=== PATIENT | female | born 1995 | race African-American/Black ===

== ENCOUNTER 2020-08-15 19:15 | Inpatient (IN) | payer OTHER ==
[2020-08-15 20:52] VITALS: BMI 46.2
[2020-08-15] MEDS ORDERED: NS / Oxytocin 40 units/1000ml 1,000 ML IV PRN ×3 (21:26→22:20)
[2020-08-15] MEDS ORDERED: Promethazine HCl 25 MG/ML VIAL IM PRN ×2 (21:26→21:28)
[2020-08-15] MEDS ORDERED: Carboprost 250 MCG/ML AMP IM PRN (21:26)
[2020-08-15] MEDS ORDERED: Ibuprofen 800 MG TAB PO PRN (21:26)
[2020-08-15] MEDS ORDERED: Misoprostol 200 MCG TAB PR PRN (21:26)
[2020-08-15] MEDS ORDERED: Lidocaine 1% (PF) 30 ML VIAL SC PRN ×3 (21:26→22:20)
[2020-08-15] MEDS ORDERED: hydrALAZINE 20 MG/ML VIAL SLOW IVP PRN ×2 (21:26→21:28)
[2020-08-15] MEDS ORDERED: Ondansetron PF 4 MG/2 ML Vial IVP PRN ×2 (21:26→21:28)
[2020-08-15] MEDS ORDERED: Methylergonovine 0.2 MG/ML VIAL IM PRN (21:26)
[2020-08-15] MEDS ORDERED: Misoprostol 100 MCG TAB VAG SCH ×2 (21:30→22:00)
[2020-08-15] MEDS ORDERED: Lactated Ringer's 1,000 ML IV SCH (21:30)
[2020-08-15] MEDS ORDERED: NS w/ Oxytocin 30 units 500 ML IV PRN (21:43)
[2020-08-15 22:09] LABS: Hemoglobin 10.2 g/dL (12.0-15.5); Mean Corpuscular HGB CONC 31.8 g/dL (32.0-36.0); Mean Corpuscular Hemoglobin 23.9 pg (27.0-33.0); Mean Corpuscular Volume 75.4 fl (81.6-98.3); Mean Platelet Volume 9.5 fl (7.4-10.4); Platelet Count 336 10x3/uL (150-450); RBC Distribution Width 13.9 % (11.5-14.5); Red Blood Cell (RBC) Count 4.26 10x6/uL (3.90-5.03)
[2020-08-15] MEDS ORDERED: Penicillin G Potassium 5 MILL.UNITS in Sodium Chloride 0.9% 100 ML IVPB SCH (22:30)
[2020-08-15 22:38] LABS: Hep B Surf Ag Non-Reactive S/CO (NonReactive); Syphilis Antibody Nonreactive (Nonreactive); Syphilis Antibody Index 0.03 S/CO (<1.00 Non-Reactive)
[2020-08-15] MEDS: Lactated Ringer's 1,000 ML IV SCH (23:23)
[2020-08-15 23:34] LABS: HBSAg Index 0.17 S/CO (0-0.99)
[2020-08-15] MEDS ORDERED: Fentanyl 4 mcg/Bup 0.1% Cadd 100 ML ONE (23:42)
[2020-08-16] MEDS ORDERED: Lactated Ringer's 500 ML IV PRN (00:22)
[2020-08-16] MEDS ORDERED: Promethazine HCl 25 MG/ML VIAL IM PRN (00:22)
[2020-08-16] MEDS ORDERED: Naloxone HCl 0.4 mg/ml Vial IVP PRN ×2 (00:22)
[2020-08-16] MEDS ORDERED: diphenhydrAMINE 50 MG/ML VIAL IVP PRN (00:22)
[2020-08-16] MEDS ORDERED: Ondansetron PF 4 MG/2 ML Vial IVP PRN (00:22)
[2020-08-16] MEDS ORDERED: ePHEDrine 50 MG/ML VIAL SLOW IVP PRN (00:22)
[2020-08-16] MEDS ORDERED: Communication Order-Pharmacy FS SCH (00:30)
[2020-08-16] MEDS ORDERED: Labetalol 100 MG TAB PO SCH (00:45)
[2020-08-16 00:47] LABS: Glucose 153 mg/dL (70-105)
[2020-08-16] MEDS: Penicillin G 2.5 MILL.units 2.5 MILL.UNITS in Premix Bag 1 BAG IVPB SCH ×4 (03:44→18:30)
[2020-08-16] MEDS: Fentanyl 4 mcg/Bupivacaine 0.1% Cassette 100 ML EPIDURAL SCH ×2 (08:31→15:24)
[2020-08-16] MEDS: Lactated Ringer's 1,000 ML IV SCH (10:17)
[2020-08-16] MEDS ORDERED: Calcium Gluc 4.6 MEQ/10 ML (100 MG/ML) SLOW IVP PRN (12:13)
[2020-08-16] MEDS ORDERED: Magnesium Sulfate 20 GM/WATER 500 ML BAG IVPB SCH (12:15)
[2020-08-16] MEDS ORDERED: Magnesium Sulfate 20 gm/500 ml 20 GM/500 ML BAG ONE (12:16)
[2020-08-16] MEDS: Magnesium Sulfate 20 gm/500 ml 20 GM/500 ML BAG IVPB SCH ×2 (12:25→21:30)
[2020-08-16] MEDS ORDERED: Magnesium Sulfate 20 gm/500 ml 4 GM/100 ML BAG IVPB ONE (12:30)
[2020-08-16] MEDS ORDERED: Fentanyl 100 MCG/2 ML VIAL ONE (13:52)
[2020-08-16] MEDS: hydrALAZINE 20 MG/ML VIAL SLOW IVP SCH ×2 (14:23→17:39)
[2020-08-16] MEDS ORDERED: hydrALAZINE 20 MG/ML VIAL SLOW IVP SCH (17:30)
[2020-08-16] MEDS ORDERED: Adacel (T-DAP) 0.5 ML SYRINGE IM ONE (19:26)
[2020-08-16] MEDS ORDERED: hydrALAZINE 20 MG/ML VIAL SLOW IVP PRN (19:26)
[2020-08-16] MEDS ORDERED: Bisacodyl 10 MG SUPP PR PRN (19:26)
[2020-08-16] MEDS ORDERED: Lanolin Ointment 7 GM TUBE TOP PRN (19:26)
[2020-08-16] MEDS ORDERED: Milk Of Magnesia 30 ML UDCUP PO PRN (19:26)
[2020-08-16] MEDS ORDERED: Preparation H Ointment 28 GM TUBE PR PRN (19:26)
[2020-08-16] MEDS ORDERED: NS / Oxytocin 40 units/1000ml 1,000 ML IV SCH (19:30)
[2020-08-16 19:33] LABS: RapidComm Collect By cbn
[2020-08-16 19:34] LABS: Notified Whom: L&D; RapidComm Collect By cbn; pH (Cord, venous) 7.334 (7.250-7.350)
[2020-08-16] MEDS ORDERED: NS w/ Oxytocin 30 units 500 ML ONE (19:55)
[2020-08-16] MEDS: Labetalol 100 MG TAB PO SCH (21:05)
[2020-08-17] MEDS ORDERED: HumaLOG 300 UNITS/3 ML VIAL SC PRN ×2 (01:56)
[2020-08-17] MEDS ORDERED: Dextrose 50% Abboject 50 ML SYRINGE SLOW IVP PRN (01:56)
[2020-08-17] MEDS ORDERED: Dextrose 5% in Water 1,000 ML IV PRN (01:56)
[2020-08-17 08:20] LABS: Hemoglobin 9.8 g/dL (12.0-15.5); Mean Corpuscular HGB CONC 31.2 g/dL (32.0-36.0); Mean Corpuscular Hemoglobin 23.6 pg (27.0-33.0); Mean Corpuscular Volume 75.5 fl (81.6-98.3); Mean Platelet Volume 9.5 fl (7.4-10.4); Platelet Count 343 10x3/uL (150-450); RBC Distribution Width 14.5 % (11.5-14.5); Red Blood Cell (RBC) Count 4.16 10x6/uL (3.90-5.03); White Blood Cell (WBC) Count 13.6 10x3/uL (3.5-10.5)
[2020-08-17] MEDS: Magnesium Sulfate 20 gm/500 ml 20 GM/500 ML BAG IVPB SCH (08:20)
[2020-08-17] MEDS: Labetalol 100 MG TAB PO SCH ×2 (09:47→21:08)
[2020-08-17] MEDS: Docusate Calcium (SURFAK) 240 MG CAP PO SCH ×2 (09:53→21:09)
[2020-08-17] MEDS: Ferrous Sulfate 325 MG TAB PO SCH (09:53)
[2020-08-17] MEDS: Prenatal Vitamin 1 TAB PO SCH (09:53)
[2020-08-17] MEDS: Ibuprofen 800 MG TAB PO SCH ×2 (13:24→21:10)
[2020-08-17] MEDS: Lactated Ringer's 1,000 ML IV SCH (15:31)
[2020-08-17] MEDS: Acetaminophen 325 MG TAB PO PRN ×2 (15:59→21:09)
[2020-08-18] MEDS: Ibuprofen 800 MG TAB PO SCH ×3 (06:31→21:24)
[2020-08-18] MEDS: Labetalol 100 MG TAB PO SCH ×2 (08:50→21:26)
[2020-08-18] MEDS: Prenatal Vitamin 1 TAB PO SCH (08:50)
[2020-08-18] MEDS: Ferrous Sulfate 325 MG TAB PO SCH ×2 (08:50→18:30)
[2020-08-18] MEDS: Docusate Calcium (SURFAK) 240 MG CAP PO SCH ×2 (08:51→21:26)
[2020-08-18] MEDS: Lactated Ringer's 1,000 ML IV SCH (21:27)
[2020-08-19] MEDS: Ibuprofen 800 MG TAB PO SCH ×2 (06:36→12:06)
[2020-08-19] MEDS: Lactated Ringer's 1,000 ML IV SCH ×2 (07:00→12:06)
[2020-08-19] MEDS ORDERED: Labetalol 100 MG TAB PO SCH (09:00)
[2020-08-19] MEDS: Ferrous Sulfate 325 MG TAB PO SCH (09:24)
[2020-08-19] MEDS: Docusate Calcium (SURFAK) 240 MG CAP PO SCH (09:25)
[2020-08-19] MEDS: Prenatal Vitamin 1 TAB PO SCH (09:25)
[2020-08-19 10:55] VITALS: TEMP 98.1
[2020-08-19 11:22] VITALS: BP 144/67
== END 2020-08-19 12:35 | disposition home or self-care (01) | DRG 807 ==
LOC: CSHLD 19:56 → CSHPP 08-17 20:35
PROVIDERS: ADMIT Family Medicine; ATTEND Family Medicine
PROC: 10E0XZZ Delivery of Products of Conception, External Approach (ICD-10-PCS; principal; 2020-08-16)
PROC: 10907ZC Drainage of Amniotic Fluid, Therapeutic from Products of Conception, Via Natural or Artificial Opening (ICD-10-PCS; 2020-08-16)
PROC: 3E033VJ Introduction of Other Hormone into Peripheral Vein, Percutaneous Approach (ICD-10-PCS; 2020-08-16)
PROC: 3E0P7VZ Introduction of Hormone into Female Reproductive, Via Natural or Artificial Opening (ICD-10-PCS; 2020-08-16)
PROC: 10H07YZ Insertion of Other Device into Products of Conception, Via Natural or Artificial Opening (ICD-10-PCS; 2020-08-16)
DX: O11.4 Pre-existing hypertension with pre-eclampsia, complicating childbirth (principal); Z37.0 Single live birth; Z20.822 Contact with and (suspected) exposure to COVID-19; O66.0 Obstructed labor due to shoulder dystocia; O99.824 Streptococcus B carrier state complicating childbirth; O24.425 Gestational diabetes mellitus in childbirth, controlled by oral hypoglycemic drugs; O69.81X0 Labor and delivery complicated by cord around neck, without compression, not applicable or unspecified; Z3A.37 37 weeks gestation of pregnancy; Z88.2 Allergy status to sulfonamides; Z88.1 Allergy status to other antibiotic agents; Z79.82 Long term (current) use of aspirin; Z79.899 Other long term (current) drug therapy; O70.0 First degree perineal laceration during delivery
CPT/HCPCS: 36415; 36416; 51702; 82805; 82947; 85027; 86780; 86850; 86900; 86901; 87340; 88307; J0360; J1200; J1815; J2405; J2540; J2590; J3010; J3475; J3490

== ENCOUNTER 2020-08-20 23:11 | Inpatient (IN) | payer OTHER ==
[2020-08-20] MEDS ORDERED: Ondansetron ODT 4 MG TAB PO PRN (23:16)
[2020-08-20] MEDS ORDERED: Calcium Gluconate 4.6 MEQ in Sodium Chloride 0.9% 100 ML IVPB PRN (23:16)
[2020-08-20] MEDS ORDERED: Magnesium Sulfate 20 gm/500 ml 20 GM/500 ML BAG IVPB SCH (23:30)
[2020-08-20] MEDS ORDERED: Enoxaparin Sodium 40 MG/0.4 ML SYRINGE SC SCH (23:45)
[2020-08-21] MEDS ORDERED: niCARdipine 25 MG in Sodium Chloride 0.9% 250 ML 240 ML IVPB SCH (00:15)
[2020-08-21] MEDS ORDERED: Furosemide 20 MG/2 ML VIAL SLOW IVP SCH ×2 (00:15→06:45)
[2020-08-21 00:37] VITALS: BMI 44.3
[2020-08-21] MEDS: Acetaminophen 325 MG TAB PO PRN ×3 (01:56→20:35)
[2020-08-21 02:18] LABS: SARS-CoV-2 NAA Rapid Test Not Detected (NotDetected)
[2020-08-21 04:19] LABS: #Eosinphils 0.3 10x3/uL (0.0-0.5); #Monocytes 0.7 10x3/uL (0.0-1.1); #Neutrophils 6.2 10x3/uL (1.5-8.4); %Basophils 0.4 % (0.0-2.0); %Eosinophils 3.1 % (0.0-6.0); %Lymphocytes 24.4 % (18.0-47.0); %Neutrophils 64.6 % (40.0-75.0); Hemoglobin 9.4 g/dL (12.0-15.5); Mean Corpuscular HGB CONC 30.7 g/dL (32.0-36.0); Mean Corpuscular Hemoglobin 23.5 pg (27.0-33.0); Mean Corpuscular Volume 76.5 fl (81.6-98.3); Mean Platelet Volume 8.9 fl (7.4-10.4); Platelet Count 435 10x3/uL (150-450); White Blood Cell (WBC) Count 9.5 10x3/uL (3.5-10.5)
[2020-08-21 04:28] LABS: ALT (SGPT) 55 U/L (8-55); AST (SGOT) 45 U/L (5-34); Albumin 3.4 g/dL (3.5-5.0); Alkaline Phosphatase 163 U/L (40-110); Anion Gap 15 mmol/L (10-20); BUN (Urea Nitrogen) 4 mg/dL (7.0-18.7); Bilirubin, Total 0.4 mg/dL (0.2-1.2); Calc. Creatinine Clearance 269 mL/min (70-130); Carbon Dioxide 25 mmol/L (22-29); Chloride 105 mmol/L (98-107); Globulin 2.9 g/dL (2.4-3.5); Glucose 91 mg/dL (70-105); Protein, Total 6.3 g/dL (6.0-8.3); Sodium 142 mmol/L (136-145)
[2020-08-21] MEDS ORDERED: Potassium Chloride 20 MEQ TAB PO SCH (06:45)
[2020-08-21] MEDS ORDERED: Carvedilol 3.125 MG TAB PO SCH ×3 (08:00→17:00)
[2020-08-21] MEDS ORDERED: Prenatal Vitamin 1 TAB PO SCH ×2 (09:00→11:03)
[2020-08-21] MEDS ORDERED: Chlorthalidone 25 MG TAB PO SCH (09:00)
[2020-08-21] MEDS ORDERED: Enoxaparin Sodium 40 MG/0.4 ML SYRINGE SC SCH (09:00)
[2020-08-21] MEDS ORDERED: hydrALAZINE 20 MG/ML VIAL ONE (10:25)
[2020-08-21] MEDS ORDERED: hydrALAZINE 20 MG/ML VIAL SLOW IVP PRN ×2 (10:55→15:07)
[2020-08-21] MEDS ORDERED: Lactated Ringer's 1,000 ML IV SCH (11:00)
[2020-08-21] MEDS ORDERED: Polyethylene Glycol 3350 17 GM Packet PO PRN (11:03)
[2020-08-21] MEDS ORDERED: Magnesium Sulfate 20 gm/500 ml 20 GM/500 ML BAG IVPB SCH (11:03)
[2020-08-21] MEDS ORDERED: Calcium Carbonate 500 MG ChewTAB PO PRN (11:03)
[2020-08-21] MEDS ORDERED: Calcium Gluconate 4.6 MEQ in Sodium Chloride 0.9% 100 ML IVPB PRN (11:03)
[2020-08-21] MEDS ORDERED: Docusate 100 MG CAP PO PRN (11:03)
[2020-08-21] MEDS ORDERED: Ondansetron ODT 4 MG TAB PO PRN (11:03)
[2020-08-21] MEDS ORDERED: Ferrous Sulfate 325 MG TAB PO SCH (12:30)
[2020-08-21] MEDS ORDERED: Furosemide 20 MG TAB PO SCH ×3 (12:30→14:00)
[2020-08-21] MEDS ORDERED: Amlodipine 10 MG TAB PO SCH (12:45)
[2020-08-21] MEDS ORDERED: Labetalol HCl 100 MG/20 ML VIAL SLOW IVP SCH (13:00)
[2020-08-21] MEDS ORDERED: Ibuprofen 200 MG TAB PO PRN (13:31)
[2020-08-21] MEDS ORDERED: hydrALAZINE 20 MG/ML VIAL SLOW IVP SCH ×2 (14:00→15:15)
[2020-08-21] MEDS ORDERED: HYDROcodone/Acetaminophen 5/325 mg Tablet PO PRN (15:35)
[2020-08-21] MEDS: Carvedilol 6.25 MG TAB PO SCH ×2 (20:43→22:03)
[2020-08-21] MEDS ORDERED: FLU VACC QS2020-21(6MOS UP)/PF 60 MCG/0.5 ML SYRINGE IM ONE (21:00)
[2020-08-21] MEDS ORDERED: Prevnar 13-Val Conj/PF 0.5 ML SYRINGE IM ONE (21:00)
[2020-08-21] MEDS: Enoxaparin Sodium 40 MG/0.4 ML SYRINGE SC SCH (22:00)
[2020-08-22 06:44] LABS: ALT (SGPT) 49 U/L (8-55); AST (SGOT) 28 U/L (5-34); Albumin 3.3 g/dL (3.5-5.0); Alkaline Phosphatase 156 U/L (40-110); Anion Gap 12 mmol/L (10-20); BUN (Urea Nitrogen) 7 mg/dL (7.0-18.7); Bilirubin, Total 0.4 mg/dL (0.2-1.2); Calc. Creatinine Clearance 225 mL/min (70-130); Carbon Dioxide 26 mmol/L (22-29); Chloride 105 mmol/L (98-107); Globulin 2.8 g/dL (2.4-3.5); Glucose 107 mg/dL (70-105); Potassium 3.3 mmol/L (3.5-5.1); Protein, Total 6.1 g/dL (6.0-8.3); Sodium 140 mmol/L (136-145)
[2020-08-22] MEDS ORDERED: Potassium Chloride 20 MEQ TAB PO SCH (09:00)
[2020-08-22] MEDS: Prenatal Vitamin 1 TAB PO SCH (09:08)
[2020-08-22] MEDS: Carvedilol 6.25 MG TAB PO SCH ×2 (09:09→17:49)
[2020-08-22] MEDS: Ferrous Sulfate 325 MG TAB PO SCH (09:09)
[2020-08-22] MEDS: Chlorthalidone 25 MG TAB PO SCH (09:09)
[2020-08-22] MEDS: Amlodipine 10 MG TAB PO SCH (09:09)
[2020-08-22] MEDS: Acetaminophen 325 MG TAB PO PRN (20:13)
[2020-08-22] MEDS: Enoxaparin Sodium 40 MG/0.4 ML SYRINGE SC SCH (21:09)
[2020-08-22 23:31] LABS: SARS-CoV-2 NAA Rapid Test Not Detected (NotDetected)
[2020-08-23 07:54] VITALS: BP 132/64; TEMP 99.3
[2020-08-23] MEDS: Ferrous Sulfate 325 MG TAB PO SCH (08:29)
[2020-08-23] MEDS: Amlodipine 10 MG TAB PO SCH (08:29)
[2020-08-23] MEDS: Chlorthalidone 25 MG TAB PO SCH (08:29)
[2020-08-23] MEDS: Prenatal Vitamin 1 TAB PO SCH (08:29)
[2020-08-23] MEDS: Carvedilol 6.25 MG TAB PO SCH (08:30)
== END 2020-08-23 11:00 | disposition home or self-care (01) | DRG 776 ==
LOC: CSHICU 23:11 → CSHLD 08-21 09:59 → CSHPP 08-21 22:24
PROVIDERS: ADMIT Obstetrics & Gynecology; ATTEND Student in an Organized Health Care Education/Training Program
DX: O11.5 Pre-existing hypertension with pre-eclampsia, complicating the puerperium (principal); I16.1 Hypertensive emergency; O10.93 Unspecified pre-existing hypertension complicating the puerperium; O24.439 Gestational diabetes mellitus in the puerperium, unspecified control; O90.81 Anemia of the puerperium; D50.9 Iron deficiency anemia, unspecified; O99.43 Diseases of the circulatory system complicating the puerperium; Z94.9 Transplanted organ and tissue status, unspecified; Z79.899 Other long term (current) drug therapy; Z83.49 Family history of other endocrine, nutritional and metabolic diseases; Z80.3 Family history of malignant neoplasm of breast; Z80.6 Family history of leukemia; Z83.3 Family history of diabetes mellitus; O91.22 Nonpurulent mastitis associated with the puerperium
CPT/HCPCS: 80053; 83735; 83880; 84484; 85025; 93005; 93010; 93306; J0360; J1650; J1940; J3475; U0002

== ENCOUNTER 2022-09-26 01:10 | Emergency (ER) | payer OTHER ==
[2022-09-26 02:07] LABS: #Basophils 0.1 10x3/uL (0.0-0.2); #Eosinphils 0.3 10x3/uL (0.0-0.5); #Monocytes 0.4 10x3/uL (0.0-1.1); #Neutrophils 4.5 10x3/uL (1.5-8.4); %Basophils 0.6 % (0.0-2.0); %Eosinophils 3.1 % (0.0-6.0); %Lymphocytes 40.2 % (18.0-47.0); %Monocytes 4.3 % (0.0-10.0); %Neutrophils 51.6 % (40.0-75.0); Hemoglobin 13.5 g/dL (12.0-15.5); Mean Corpuscular HGB CONC 32.6 g/dL (32.0-36.0); Mean Corpuscular Volume 79.6 fl (81.6-98.3); Mean Platelet Volume 8.8 fl (7.4-10.4); Platelet Count 419 10x3/uL (150-450); RBC Distribution Width 13.5 % (11.5-14.5); White Blood Cell (WBC) Count 8.7 10x3/uL (3.5-10.5)
[2022-09-26 02:17] LABS: BHCG - Serum POSITIVE (NEGATIVE); Pregs Control Background? CLEAR/WHITE (CLR/WHITE); Pregs Control Bar Appear? YES (CONTROL BAR)
[2022-09-26 02:22] LABS: ALT (SGPT) 138 U/L (8-55); AST (SGOT) 49 U/L (5-34); Albumin 4.4 g/dL (3.5-5.0); Alkaline Phosphatase 119 U/L (40-110); Anion Gap 14 mmol/L (10-20); BUN (Urea Nitrogen) 10 mg/dL (7.0-18.7); Bilirubin, Total 0.4 mg/dL (0.2-1.2); Calc. Creatinine Clearance 0 mL/min (70-130); Calcium 9.1 mg/dL (7.8-10.44); Carbon Dioxide 22 mmol/L (22-29); Chloride 104 mmol/L (98-107); Estimated GFR 107; Globulin 3.6 g/dL (2.4-3.5); Glucose 105 mg/dL (70-105); Potassium 4.1 mmol/L (3.5-5.1); Sodium 136 mmol/L (136-145)
== END 2022-09-26 02:40 | disposition home or self-care (01) ==
LOC: CSHERS 01:10
DX: O26.891 Other specified pregnancy related conditions, first trimester (principal); F17.290 Nicotine dependence, other tobacco product, uncomplicated; Z3A.00 Weeks of gestation of pregnancy not specified
CPT/HCPCS: 80053; 84703; 85025; 93005; 96360

== ENCOUNTER 2022-10-11 22:56 | Emergency (ER) | payer BC, OTHER | END 2022-10-11 23:30 | disposition home or self-care (01) | LOC: CSHERS 22:56 | DX: O21.9 Vomiting of pregnancy, unspecified (principal); Z3A.01 Less than 8 weeks gestation of pregnancy | CPT/HCPCS: 99283 ==

== ENCOUNTER 2022-10-13 15:00 | Emergency (ER) | payer BC, OTHER ==
[2022-10-13 15:46] LABS: Bilirubin Neg (Negative); Blood, Urine 25 (Negative); Clarity Clear (Clear); Glucose, Urine (Dipstick) Normal (Negative); Ketone, Urine Negative (Negative); Leukocyte Negative (Negative); Nitrite Negative (Negative); Protein, Urine (Dipstick) Negative (Neg-Trace); Urobilinogen Normal mg/dL (Less than 2)
[2022-10-13 16:07] LABS: Bacteria/HPF Rare-Few HPF (None Seen); RBC/HPF 0-3 HPF (0-3); Squamous Epithelial 0-3 HPF (0-3); WBC/HPF 0-3 HPF (0-3)
[2022-10-13 16:20] LABS: #Eosinphils 0.2 10x3/uL (0.0-0.5); #Monocytes 0.5 10x3/uL (0.0-1.1); #Neutrophils 4.3 10x3/uL (1.5-8.4); %Basophils 0.4 % (0.0-2.0); %Eosinophils 2.7 % (0.0-6.0); %Lymphocytes 31.3 % (18.0-47.0); %Monocytes 6.6 % (0.0-10.0); %Neutrophils 58.6 % (40.0-75.0); Hemoglobin 12.3 g/dL (12.0-15.5); Mean Corpuscular HGB CONC 32.5 g/dL (32.0-36.0); Mean Corpuscular Hemoglobin 26.1 pg (27.0-33.0); Mean Corpuscular Volume 80.5 fl (81.6-98.3); Platelet Count 400 10x3/uL (150-450); RBC Distribution Width 13.9 % (11.5-14.5); Red Blood Cell (RBC) Count 4.71 10x6/uL (3.90-5.03); White Blood Cell (WBC) Count 7.4 10x3/uL (3.5-10.5)
[2022-10-13 16:32] LABS: ALT (SGPT) 34 U/L (8-55); AST (SGOT) 20 U/L (5-34); Albumin 4.1 g/dL (3.5-5.0); Alkaline Phosphatase 102 U/L (40-110); Anion Gap 11 mmol/L (10-20); BUN (Urea Nitrogen) 12 mg/dL (7.0-18.7); Bilirubin, Total 0.3 mg/dL (0.2-1.2); Calc. Creatinine Clearance 0 mL/min (70-130); Calcium 9.2 mg/dL (7.8-10.44); Carbon Dioxide 24 mmol/L (22-29); Chloride 104 mmol/L (98-107); Estimated GFR 98; Globulin 3.2 g/dL (2.4-3.5); Glucose 134 mg/dL (70-105); Potassium 4.2 mmol/L (3.5-5.1); Protein, Total 7.3 g/dL (6.0-8.3); Sodium 135 mmol/L (136-145)
== END 2022-10-13 17:13 | disposition home or self-care (01) ==
LOC: CSHERS 15:00
DX: O20.0 Threatened abortion (principal); Z3A.01 Less than 8 weeks gestation of pregnancy
CPT/HCPCS: 36415; 76856; 80053; 81003; 81015; 84702; 85025; 86900; 86901

== ENCOUNTER 2022-12-07 14:27 | Emergency (ER) | payer BC, OTHER ==
[2022-12-07 16:16] LABS: Bilirubin Neg (Negative); Blood, Urine 25 (Negative); Clarity Slightly Cloudy (Clear); Glucose, Urine (Dipstick) Normal (Negative); Ketone, Urine 5 mg/dL (Negative); Leukocyte 100 (Negative); Nitrite Negative (Negative); Protein, Urine (Dipstick) 30 mg/dl (Neg-Trace); Specific Gravity, Urine 1.025 (1.005-1.030)
[2022-12-07 16:18] LABS: Pregnancy Test - Urine (BHCG) Negative (Negative); Pregu Control Background? CLEAR/WHITE (CLR/WHITE); Pregu Control Bar Appear? YES (CONTROL BAR); Specific Gravity 1.025 (1.002-1.036)
[2022-12-07 16:26] LABS: Bacteria/HPF Rare-Few HPF (None Seen); CAUTI Indications for Culture Pelvic or flank pain; Mucous/LPF 3+ LPF (<2+)
[2022-12-07 16:27] LABS: Urine Culture Reflex No No
[2022-12-08 23:57] LABS: Chlamydia by PCR, Vaginal Swab *Indeterminate (NotDetected); GC by PCR, Vaginal Swab *Indeterminate (NotDetected)
== END 2022-12-07 16:42 | disposition home or self-care (01) ==
LOC: CSHERS 14:27
DX: B37.31 Acute candidiasis of vulva and vagina (principal)
CPT/HCPCS: 81001; 81025; 87480; 87491; 87510; 87591; 87660; 99283

== ENCOUNTER 2023-02-03 11:38 | Emergency (ER) | payer BC, OTHER | END 2023-02-03 12:43 | disposition home or self-care (01) | LOC: CSHERS 11:38 | DX: H60.02 Abscess of left external ear (principal) | CPT/HCPCS: 99282 ==

== ENCOUNTER 2023-04-14 20:27 | Emergency (ER) | payer BC, OTHER ==
[2023-04-14] MEDS ORDERED: Dexamethasone 4 MG TAB ONE (22:32)
== END 2023-04-14 22:34 | disposition home or self-care (01) ==
LOC: CSHERS 20:27
DX: J02.9 Acute pharyngitis, unspecified (principal); B34.9 Viral infection, unspecified
CPT/HCPCS: 99283; J8540

== ENCOUNTER 2023-05-10 07:40 | Emergency (ER) | payer BC, OTHER ==
[2023-05-10 10:35] LABS: SARS-CoV-2 NAA Rapid Test Not Detected (NotDetected)
== END 2023-05-10 10:52 | disposition home or self-care (01) ==
LOC: CSHERS 07:40
DX: J06.9 Acute upper respiratory infection, unspecified (principal); Z20.822 Contact with and (suspected) exposure to COVID-19
CPT/HCPCS: 99284; U0002

== ENCOUNTER 2023-06-03 11:40 | Emergency (ER) | payer BC, OTHER ==
[2023-06-03] MEDS ORDERED: Ibuprofen 800 MG TAB ONE (12:22)
== END 2023-06-03 13:26 | disposition home or self-care (01) ==
LOC: CSHERS 11:40
DX: S93.402A Sprain of unspecified ligament of left ankle, initial encounter (principal); X50.9XXA Other and unspecified overexertion or strenuous movements or postures, initial encounter

== ENCOUNTER 2023-07-14 01:08 | Emergency (ER) | payer BC, OTHER | END 2023-07-14 01:45 | disposition home or self-care (01) | LOC: CSHERS 01:08 | DX: B34.9 Viral infection, unspecified (principal) | CPT/HCPCS: 99283 ==

== ENCOUNTER 2023-10-28 07:38 | Emergency (ER) | payer BC | END 2023-10-28 08:44 | disposition home or self-care (01) | LOC: CSHERS 07:38 | DX: S60.012A Contusion of left thumb without damage to nail, initial encounter (principal); F17.290 Nicotine dependence, other tobacco product, uncomplicated; W19.XXXA Unspecified fall, initial encounter ==